=== PATIENT | female | born 1975 | race Caucasian/White ===

== ENCOUNTER → 2019-03-21 16:55 | Outpatient (CLI) | payer OTHER, SELFPAY ==
--- NOTE | ~2019-03-21 | MM_ITS ---
EXAMINATION: MM screening [facility] BI w parmjit HISTORY: Screening mammogram TECHNIQUE: Craniocaudal and mediolateral oblique 3-D tomosynthesis images were obtained and synthetic 2-D images were generated. CAD analysis was submitted and interpreted. COMPARISON: 01/18/2017 diagnostic left digital mammogram and limited left breast ultrasound 07/21/2016, 07/13/2015 bilateral digital screening mammogram examinations BREAST PARENCHYMAL COMPOSITION: FINDINGS: There is no evidence of suspicious mass, calcification, or architectural distortion to sugg est malignancy in either breast. There has been no suspicious interval change. IMPRESSION: 1. No mammographic evidence of malignancy. 2. Recommend routine screening mammography in one year. BI-RADS Category 1: Negative Reviewed, dictated and finalized at location A. BURNER
== END ==
PROVIDERS: Visit Provider Obstetrics & Gynecology
DX: Z12.31 Encounter for screening mammogram for malignant neoplasm of breast (principal)
CPT/HCPCS: 77063; 77067

== ENCOUNTER → 2020-08-14 13:32 | Outpatient (CLI) | payer OTHER, SELFPAY ==
--- NOTE | ~2020-08-14 | MM_ITS ---
EXAMINATION: MM screening [facility] BI w parmjit HISTORY: Screening mammogram TECHNIQUE: Craniocaudal and mediolateral oblique 3-D tomosynthesis images were obtained and synthetic 2-D images were generated. CAD analysis was submitted and interpreted. COMPARISON: 03/21/2019, 01/18/2017, 07/21/2016 BREAST PARENCHYMAL COMPOSITION: The breasts are heterogeneously dense, which may obscure small masses . FINDINGS: There is no evidence of suspicious mass, calcification, or architectural distortion to sugg est malignancy in either breast. There has been no suspicious interval change. IMPRESSION: 1. No mammographic evidence of malignancy. 2. Recommend routine screening mammography in one year. BI-RADS Category 1: Negative Reviewed, dictated and finalized at location A.
== END ==
PROVIDERS: PCP Family Medicine; Visit Provider Obstetrics & Gynecology
DX: Z12.31 Encounter for screening mammogram for malignant neoplasm of breast (principal)
CPT/HCPCS: 77063; 77067

== ENCOUNTER 2020-10-07 16:27 | Outpatient (CLI) | payer OTHER, SELFPAY ==
--- NOTE | ~2020-10-07 | MR_ITS ---
EXAMINATION: MR brain/brain stem wo/w con DATE: 10/07/2020 17:15 INDICATION: Unspecified convulsions. TECHNIQUE: Magnetic resonance imaging (MRI) of the brain and brainstem was performed without and with 13 mL MultiHance intravenous contrast. Sequences included sagittal and axial T1-weighted FSE, axial diffusion-weighted FS EPI, axial T2*-weighted GRE, axial T2-weighted FLAIR Propeller, axial T2-weight ed Propeller, coronal T2-weighted FLAIR, and coronal T1-weighted 3D FSPGR. Postcontrast axial and cor onal T1-weighted FSE was obtained. Apparent diffusion coefficient (ADC) maps were created. COMPARISON: None. FINDINGS: There are 3 small foci of increased T2-weighted signal intensity in the right frontal lobe deep white matter, which is normal for the patient's age. The hippocampi are normal and symmetric. Th ere is no intracranial hemorrhage, acute infarction, or abnormal intracranial mass lesion. The ventri cles are normal in size. The orbits are normal. There is mucosal thickening in left sphenoid sinus. T here is a trace left mastoid effusion. IMPRESSION: 1. Normal brain. Reviewed, dictated and finalized at location A. IMPRESSION: 1. Normal brain.
[2020-10-07 16:46] LABS: Estimated Glomerular Filt Rate 59
== END 2020-10-07 16:28 | disposition home or self-care (01) ==
PROVIDERS: PCP Family Medicine; Visit Provider Physician Assistant
DX: R56.9 Unspecified convulsions (principal)
CPT/HCPCS: 70553; A9577

== ENCOUNTER → 2021-10-22 11:09 | Outpatient (CLI) | payer OTHER, SELFPAY ==
--- NOTE | ~2021-10-22 | MM_ITS ---
EXAMINATION: MM screening gil BI w parmjit HISTORY: Screening mammogram TECHNIQUE: Craniocaudal and mediolateral oblique 3-D tomosynthesis images were obtained and synthetic 2-D images were generated. CAD analysis was submitted and interpreted. COMPARISON: 08/14/2020, 03/21/2019 bilateral screening mammogram examinations BREAST PARENCHYMAL COMPOSITION: The breasts are heterogeneously dense, which may obscure small masses . FINDINGS: There is no evidence of suspicious mass, calcification, or architectural distortion to sugg est malignancy in either breast. There has been no suspicious interval change. IMPRESSION: 1. No mammographic evidence of malignancy. 2. Recommend routine screening mammography in one year. BI-RADS Category 1: Negative Reviewed, dictated and finalized at location A.
== END ==
PROVIDERS: PCP Family Medicine; Visit Provider Obstetrics & Gynecology
DX: Z12.31 Encounter for screening mammogram for malignant neoplasm of breast (principal)
CPT/HCPCS: 77063; 77067

== ENCOUNTER 2021-11-17 07:48 | Outpatient (CLI) | payer OTHER, SELFPAY ==
--- NOTE | 2021-11-17 08:12 | ECHO_ITS ---
Patient Info Name: Pilar Cotto Age: 46 years : 1975 Gender: Female Ht: 61 in Wt: 135 lbs BSA: 1.64 m2 HR: 60 bpm Technical Quality: Good Exam Date: 11/17/2021 9:10 AM Exam Location: [facility] Pulmonary Patient Status: Outpatient Admit Date: 11/17/2021 Staff Ordering Physician: Marcelo Regan MD Pinion And Wheel Truer: Irving Lawrence RDCS, RT Attending Provider: Marcelo Regan MD Referring Physician: Shereen SIMMS; Exam Type: CA echo doppler color flow Study Info Indications R07.9 - Chest pain, unspecified Complete two-dimensional, color flow and Doppler transthoracic echocardiogram is performed. Summary 1. Complete two-dimensional, color flow and Doppler transthoracic echocardiogram is performed. 2. Left ventricular chamber dimension is normal. 3. Left ventricular systolic function is normal, estimated at 60-65%. 4. The left ventricular diastolic function is normal. 5. E/e' 5 is not elevated. 6. There is mild aortic valve sclerosis. 7. There is mild to moderate aortic valve regurgitation. 8. There is mild pulmonic regurgitation. Left Ventricle E/e' 5 is not elevated. Left ventricular chamber dimension is normal. Left ventricular systolic function is normal, estimated at 60-65%. The left ventricular diastolic function is normal. Right Ventricle Right ventricular systolic function is normal and with normal TAPSE 2.3 cm. Right ventricular chamber dimension is normal. Left Atria Left atrial chamber dimension is normal. Right Atria Right atrial chamber dimension is normal. Aortic Valve The aortic valve is trileaflet. There is mild aortic valve sclerosis. There is no aortic valve stenosis. There is mild to moderate aortic valve regurgitation. Pulmonic Valve There is mild pulmonic regurgitation. Mitral Valve There is no mitral valve stenosis. There is no mitral valve regurgitation. Tricuspid Valve There is no tricuspid valve regurgitation. Pericardium/Pleural There is no pericardial effusion. Inferior Vena Cava Normal inferior vena cava with >50% collapse upon inspiration consistent with normal right atrial pressure, 5 mmHg. Aorta The aortic root size at the sinus of Valsalva is normal. Left Ventricular Outflow Tract Name Value Normal LVOT 2D LVOT Diameter 1.9 cm LVOT Doppler LVOT Peak Gradient 3 mmHg LVOT Mean Gradient 2 mmHg LVOT VTI 18 cm LVOT VTI/AV VTI Ratio 1.0 LVOT Stroke Volume 51 ml Mitral Valve Name Value Normal MV Doppler MV Decel [place] 256 cm/s2 MV PHT 69 ms MV Area (PHT) 3.2 cm2 4.0-5.0 MV Diastolic Function
--- NOTE | 2021-11-17 08:12 | EST_ITS ---
Patient Info Name: Pilar Cotto Age: 46 years : 1975 Gender: Female Ht: 61 in Wt: 135 lbs BSA: 1.64 m2 BP: 124 / 79 mmHg Exam Date: 11/17/2021 9:14 AM Exam Location: [facility] Stress Patient Status: Outpatient Admit Date: 11/17/2021 Staff Ordering Physician: Marcelo Regan MD Attending Provider: Marcelo Regan MD Exercise Technologist: Irving Lawrence RDCS, RT Exercise Physician: Jaron Singh DO Exam Type: CA stress test treadmill Study Info A treadmill exercise stress test was performed. Summary 1. 1. Negative Russlel exercise stress test for ischemic ST changes by ECG criteria. 2. 2. Good functional capacity, achieving 11 METs of workload. 3. 3. Hypertensive response to exercise. 4. 4. Appropriate HR response to exercise. 5. 5. Appropriate HR recovery at 1 minute post exercise. 6. 6. No imaging with stress testing. 7. 7. Patient informed of the above results. Protocol: Russell Stress ECG Details Stage: REST Duration (min): 2 min : 27 sec Speed (mph): 0.0 Grade (%): 0 HR (bpm): 59 SBP (mmHg): 124 DBP (mmHg): 79 METS: --- Stage: REST Duration (min): 10 min : 1 sec Speed (mph): 0.0 Grade (%): 0 HR (bpm): 70 SBP (mmHg): 124 DBP (mmHg): 79 METS: --- Stage: STAGE 1 Duration (min): 1 min : 0 sec Speed (mph): 1.7 Grade (%): 10 HR (bpm): 80 SBP (mmHg): 124 DBP (mmHg): 79 METS: --- Stage: STAGE 1 Duration (min): 2 min : 0 sec Speed (mph): 1.7 Grade (%): 10 HR (bpm): 80 SBP (mmHg): 124 DBP (mmHg): 79 METS: --- Stage: STAGE 1 Duration (min): 3 min : 0 sec Speed (mph): 1.7 Grade (%): 10 HR (bpm): 82 SBP (mmHg): 142 DBP (mmHg): 77 METS: --- Stage: STAGE 2 Duration (min): 1 min : 0 sec Speed (mph): 2.5 Grade (%): 12 HR (bpm): 95 SBP (mmHg): 142 DBP (mmHg): 77 METS: --- Stage: STAGE 2 Duration (min): 2 min : 0 sec Speed (mph): 2.5 Grade (%): 12 HR (bpm): 99 SBP (mmHg): 164 DBP (mmHg): 77 METS: --- Stage: STAGE 2 Duration (min): 3 min : 0 sec Speed (mph): 2.5 Grade (%): 12 HR (bpm): 115 SBP (mmHg): 164 DBP (mmHg): 77 METS: --- Stage: STAGE 3 Duration (min): 1 min : 0 sec Speed (mph): 3.4 Grade (%): 14 HR (bpm): 127 SBP (mmHg): 164 DBP (mmHg): 77 METS: --- Stage: STAGE 3 Duration (min): 2 min : 0 sec Speed (mph): 3.4 Grade (%): 14 HR (bpm): --- SBP (mmHg): 164 DBP (mmHg): 77 METS: --- Stage: STAGE 3 Duration (min): 3 min : 0 sec Speed (mph): 3.4 Grade (%): 14 HR (bpm): 148 SBP (mmHg): 200 DBP (mmHg): 111 METS: --- Stage: STAGE 4 Duration (min): 0 min : 30 sec Speed (mph): 4.2 Grade (%): 16 HR (bpm): 160 SBP (mmHg): 211 DBP (mmHg): 107 METS: --- Stage: RECOVERY Duration (min): 0 mi
== END 2021-11-17 07:49 | disposition home or self-care (01) ==
LOC: ANHCARD 07:50
PROVIDERS: PCP Emergency Medicine; Visit Provider Emergency Medicine
DX: R55 Syncope and collapse (principal); I35.1 Nonrheumatic aortic (valve) insufficiency; I37.1 Nonrheumatic pulmonary valve insufficiency
CPT/HCPCS: 93017; 93306

== ENCOUNTER 2022-01-25 08:00 | Outpatient (NON) | payer OTHER, SELFPAY | END 2022-01-25 08:01 | disposition home or self-care (01) | LOC: ANHLAB 01-26 13:31 | PROVIDERS: PCP Emergency Medicine; Visit Provider Internal Medicine Gastroenterology | DX: Z12.11 Encounter for screening for malignant neoplasm of colon (principal) | CPT/HCPCS: 88305 ==

== ENCOUNTER 2022-01-25 11:00 | Day surgery (SDC) | payer OTHER, SELFPAY ==
[2022-01-18 13:30] VITALS: BMI 25.8
[2022-01-25 11:20] VITALS: BP 131/93; PULSE 79; RESP 16; TEMP 36.7; O2SAT 99
--- NOTE | 2022-01-25 11:34 | WPDANESEPPF ---
Anes - Initial Pre Proc Eval Procedure: Operation Date: 01/25/22 12:30 Proposed Procedures p Screening Colonoscopy - Daryl Funez MD Date/Time: 01/25/22 11:34 Surgeon: Daryl Funez MD Pre Op Diagnosis: Neoplasm Screening Patient Data Age: 46 Gender: F Height: 1.52 m Weight: 60 kg Allergies Allergy/AdvReac Type Severity Reaction Status Date / Time vortioxetine Allergy Vomiting Verified 01/25/22 11:30 [From Trintellix] Home Medications Medication Instructions Recorded Confirmed Type cholecalciferol (vitamin D3) 50 50 mcg PO DAILY 08/31/20 01/18/22 History mcg (2,000 unit) capsule norgestimate 0.18 mg/0.215 mg/0.25 1 tablet PO DAILY 12/29/20 01/18/22 History mg-ethinyl estradiol 25 mcg tablet sertraline 50 mg tablet See Rx Instructions .Route 01/11/21 01/18/22 Rx .COMPLEX #270 tabs omeprazole 40 mg capsule,delayed See Rx Instructions .Route 02/02/21 01/18/22 Rx release .COMPLEX #90 caps albuterol sulfate 90 mcg/actuation 90 mcg inhalation PRN 01/18/22 History aerosol inhaler Patient hx anesthesia problems: none Family hx anesthesia problems: none Results Review: All pre-operative results and documents have been reviewed as part of the pre-operative evaluation. [facility] Past Medical History Medical History (Updated 01/25/22 @ 11:34 by Claude Botello MD) Anxiety Surgical History Surgical History (Updated 01/25/22 @ 11:35 by Claude Botello MD) H/O laparoscopy Family History Family History Other Family history of cardiovascular disease Family history of malignant neoplasm Social History Social History Social History: Smoker Smoking packs per day: 1 Smoking cigarettes per day: 20.0 Years smoked: 7 Smoking pack-years: 7.00 Smoking status: Current every day smoker Tobacco type: cigarettes Second hand tobacco smoke exposure: Yes Smoking end date: 02/06/07 Alcohol intake: current Drinks per week: 2 Substance use: never Substance use type: does not use Lack of Transportation: No Lack of Food: Never True Current Housing: I Have Housing Concerned About Future Housing: No Difficulty Paying Gas/Electric Bills: No Difficulty Paying for Meds: No Currently Unemployed: No Education: Master's Degree or Higher Difficulty w/ Childcare or Family Care: No Living arrangements: alone Spiritual care concerns: No Anes - Eval Final PreProcedure Day of Procedure 01/25/22 11:34 Patient weight: normal Heart: regular rate and rhythm Lungs: clear to auscultation Airway: Mallampati scale class II Neurological: alert and oriented Last oral intake: >/= 8 hours ASA classification: II Emergent: no Anesthetic plan: proceed Anesthesia type and monitoring: general GIVS and standard monitoring Results Review: All pre-operative results and documents have been reviewed as part of the pre-operative evaluation. Informed Consent: The patient's anesthetic plan and its attendant risks and benefits were discussed with the patient/family/POA. Questions were solicited and answers provided to the satisfaction of the patient/family/POA.
[2022-01-25] MEDS: LACTATED RINGERS 1,000 ML 150 ML IV CONT (11:46)
--- NOTE | 2022-01-25 13:18 | PM.HPGS ---
History of Present Illness History of Present Illness Consent: Risks, benefits, and alternatives have been discussed and questions answered. Patient agrees to proceed with procedure. Chief complaint: Neoplasm Screening Narrative: Pilar Cotto is a 46 year old female Presents for colonoscopy. Patient desires neoplasia screening colonoscopy. Patient reports frequent compulsions. She has had several of these. Workup to date has been negative. She reports occasionally having a convulsion in the middle of the night when she feels the urge to have a bowel movement. She has gone to the bathroom and had a significant compulsion. She reports her bowel habits are normal. She has no pain or bleeding. Her mother has irritable bowel syndrome. There is no family history of colon polyps nor cancer. Patient presents today for neoplasia screening colonoscopy. Never having had one previously Review of Systems Review of Systems: review of systems noncontributory. [facility] Past Medical History Medical History (Updated 01/25/22 @ 13:21 by Daryl Funez MD) Anxiety Surgical History Surgical History (Updated 01/25/22 @ 11:35 by Claude Botello MD) H/O laparoscopy Family History Family History Other Family history of cardiovascular disease Family history of malignant neoplasm Social History Social History Social History: Smoker Smoking packs per day: 1 Smoking cigarettes per day: 20.0 Years smoked: 7 Smoking pack-years: 7.00 Smoking status: Current every day smoker Tobacco type: cigarettes Second hand tobacco smoke exposure: Yes Smoking end date: 02/06/07 Alcohol intake: current Drinks per week: 2 Substance use: never Substance use type: does not use Lack of Transportation: No Lack of Food: Never True Current Housing: I Have Housing Concerned About Future Housing: No Difficulty Paying Gas/Electric Bills: No Difficulty Paying for Meds: No Currently Unemployed: No Education: Master's Degree or Higher Difficulty w/ Childcare or Family Care: No Living arrangements: alone Spiritual care concerns: No Meds Home Medications and Allergies Home Medications Medication Instructions Recorded Confirmed Type cholecalciferol (vitamin D3) 50 50 mcg PO DAILY 08/31/20 01/25/22 History mcg (2,000 unit) capsule norgestimate 0.18 mg/0.215 mg/0.25 1 tablet PO DAILY 12/29/20 01/25/22 History mg-ethinyl estradiol 25 mcg tablet sertraline 50 mg tablet See Rx Instructions .Route 01/11/21 01/25/22 Rx .COMPLEX #270 tabs omeprazole 40 mg capsule,delayed See Rx Instructions .Route 02/02/21 01/25/22 Rx release .COMPLEX #90 caps albuterol sulfate 90 mcg/actuation 90 mcg inhalation PRN 01/18/22 01/25/22 History aerosol inhaler Allergies Allergy/AdvReac Type Severity Reaction Status Date / Time vortioxetine Allergy Vomiting Verified 01/25/22 11:30 [From TrinteElixent] Vital Signs Vital Signs - 24 hr 01/25/22 11:20 Temperature 98.1 F Pulse Rate 79 Respiratory Rate 16 Blood Pressure 131/93 H Pulse Oximetry 99 Oxygen Delivery Room Air Exam Narrative: Physical exam reveals patient be alert. Vital signs stable. HEENT exam is unremarkable. Patient is anicteric. Lungs are clear to auscultation and percussion. Heart is without murmur or extra sounds. Abdomen bowel sounds are present soft nontender with no organomegaly. Digital external rectal exam is normal. Assessment and Plan Assessment and plan (1) Encounter for screening colonoscopy: Code(s): Z12.11 - Encounter for screening for malignant neoplasm of colon Status: Acute Assessment and Plan: Patient presents today for neoplasia screening colonoscopy. Appears to be at average risk for colon polyps. Further recommendations may be given today.
[2022-01-25 13:43] VITALS: BP 104/75; PULSE 76; RESP 16; O2SAT 99
[2022-01-25 13:57] VITALS: BP 108/80; PULSE 70; RESP 16; O2SAT 100
--- NOTE | 2022-01-25 13:58 | SUR.PHASEII ---
PT AWAKE AND ALERT. DENIES PAIN. DRINKING WATER, TALKATIVE WITH FAMILY.
--- NOTE | 2022-01-25 14:03 | WPDANESPN ---
Anes - Prog Note Post-Op Date/Time: 01/25/22 14:03 Cardiovascular status: normal Respiratory status: normal Airway patency: baseline Mental status: baseline Post-Op hydration status: normal Vital Signs: Last Vital Signs Temp 36.7 C 01/25/22 11:20 Pulse 70 01/25/22 13:57 Resp 16 01/25/22 13:57 BP 108/80 01/25/22 13:57 Pulse Ox 100 01/25/22 13:57 O2 Del Method Room Air 01/25/22 13:57 Pain Score (VAS): 0/10 I/O: Intake & Output 01/24/22 01/25/22 01/25/22 23:59 07:59 15:59 Intake Total 500 Balance 500 Patient Feedback: Patient satisfied with anesthetic care.
[2022-01-25 14:05] VITALS: BP 119/89; PULSE 66; RESP 16
== END 2022-01-25 14:17 | disposition home or self-care (01) ==
PROVIDERS: PCP Emergency Medicine; Visit Provider Internal Medicine Gastroenterology
PROC: 0DJD8ZZ Inspection of Lower Intestinal Tract, Via Natural or Artificial Opening Endoscopic (ICD-10-PCS; CPT 45378; principal; 2022-01-25 12:30)
DX: Z12.11 Encounter for screening for malignant neoplasm of colon (principal)
CPT/HCPCS: 45385; 45380

== ENCOUNTER 2022-06-07 12:50 | Outpatient (CLI) | payer OTHER, SELFPAY | END 2022-06-07 12:51 | disposition home or self-care (01) | LOC: ANHAUDIO 12:50 | PROVIDERS: PCP Emergency Medicine; Visit Provider Otolaryngology | DX: H90.42 Sensorineural hearing loss, unilateral, left ear, with unrestricted hearing on the contralateral side (principal); H90.71 Mixed conductive and sensorineural hearing loss, unilateral, right ear, with unrestricted hearing on the contralateral side | CPT/HCPCS: 92557; 92567 ==

== ENCOUNTER → 2022-09-20 14:58 | Outpatient (CLI) | payer OTHER, SELFPAY ==
--- NOTE | ~2022-09-20 | US_ITS ---
EXAMINATION: US transvaginal DATE: 09/20/2022 15:37 INDICATION: Ovarian cyst. TECHNIQUE: Multiple transvaginal sonographic images of the pelvis were obtained. COMPARISON: Ultrasound pelvis 08/29/2016, CT abdomen and pelvis 08/28/2016 FINDINGS: The uterus measures 7.3 x 4.2 x 5.2 cm. There is no free fluid in the pelvis. The endometrial complex measures 6 mm in thickness. There are 3.2 cm and 2.3 cm intramural fibroids. The right ovary measure s 2.3 x 1.2 x 1.6 cm. There is a 3.6 x 1.9 x 2.2 cm cystic mass with eccentric low level echoes in le ft adnexa. IMPRESSION: 1. 3.6 cm cystic mass with eccentric low level echoes in the left adnexa. This finding is suspicious for a hemorrhagic cyst or peritoneal inclusion cyst. Correlate with surgical history. Consider ultras ound in 6-12 weeks. 2. Uterine fibroids. Reviewed, dictated and finalized at location A. IMPRESSION: 1. 3.6 cm cystic mass with eccentric low level echoes in the left adnexa. This finding is suspicious for a hemorrhagic cyst or peritoneal inclusion cyst. Maribell elate with surgical history. Consider ultrasound in 6-12 weeks. 2. Uterine fibroids.
== END ==
PROVIDERS: PCP Emergency Medicine; Referring Provider Obstetrics & Gynecology; Visit Provider Obstetrics & Gynecology Gynecology
DX: N83.209 Unspecified ovarian cyst, unspecified side (principal); N94.5 Secondary dysmenorrhea; D25.9 Leiomyoma of uterus, unspecified
CPT/HCPCS: 76830

== ENCOUNTER → 2023-01-11 15:58 | Outpatient (CLI) | payer OTHER, SELFPAY ==
--- NOTE | ~2023-01-11 | US_ITS ---
Pelvic ultrasound. Clinical History: Ovarian cyst COMPARISON: 09/20/2022 Technique: Realtime transabdominal and transvaginal scanning of the pelvis was performed. Color flow Doppler and Doppler spectral analysis were performed. Findings: The uterus is anteverted. The endometrial stripe has a thickness of 4 mm. Probable right-s ided fibroid measures 1.3 cm in diameter. Additional probable ill-defined intramural fibroid measures 2.9 cm in diameter. Smaller intramural fibroid near the fundus measures 1.1 cm in diameter.. The right ovary measures 2.0 x 1.8 x 2.5 cm. No significant right ovarian or adnexal mass is seen. The left ovary measures 3.8 x 2.0 x 2.3 cm. Probable complex left ovarian cyst is similar to prior ex am. There is no evidence of free fluid in the cul de sac. Impression: Probable complex left ovarian cyst, similar to prior exam. Small uterine fibroids, as above. Reviewed, dictated and finalized at location . [employer] Impression: Probable complex left ovarian cyst, similar to prior exam. Small uterine fibroids, as above.
== END ==
PROVIDERS: PCP Obstetrics & Gynecology; Visit Provider Obstetrics & Gynecology Gynecology
DX: N94.5 Secondary dysmenorrhea (principal); D25.9 Leiomyoma of uterus, unspecified; N83.202 Unspecified ovarian cyst, left side
CPT/HCPCS: 76830

== ENCOUNTER 2023-08-18 10:41 | Outpatient (CLI) | payer OTHER, SELFPAY ==
[2023-08-21 15:09] LABS: H pylori Ag Stool RESULT: Not Detected
[2023-08-21 17:28] LABS: Immunoglobulin A 115 mg/dL (47-310); TTG IGA AB <1.0 U/mL
[2023-08-25 19:34] LABS: Pancreatic Elastase, Stool >500 mcg/g
[2023-08-25 20:54] LABS: Calprotectin, Stool 16 mcg/g
== END 2023-08-18 10:42 | disposition home or self-care (01) ==
LOC: ANHLAB 10:42
PROVIDERS: PCP Emergency Medicine; Visit Provider Nurse Practitioner
DX: R09.89 Other specified symptoms and signs involving the circulatory and respiratory systems (principal); R10.9 Unspecified abdominal pain; R55 Syncope and collapse
CPT/HCPCS: 36415; 82653; 82784; 83993; 86364; 87045; 87177; 87209; 87269; 87338; 87427; 87449

== ENCOUNTER 2023-08-29 07:42 | Outpatient (CLI) | payer OTHER, SELFPAY ==
--- NOTE | ~2023-08-29 | CT_ITS ---
EXAMINATION: CTA abdomen pelvis DATE: 08/29/2023 08:35 INDICATION: Abdominal bruit and palpable abdominal aorta TECHNIQUE: Computed tomographic angiography (CTA) of the abdomen and pelvis was performed with 100 mL Omnipaque-350 intravenous contrast. Additional 3D reconstructions utilizing rotating maximum intensi ty projection (MIP) were performed. Automated exposure control and iterative reconstruction technique were employed. The dose-length product was 265.35 mGy-cm. COMPARISON: CT dated 08/28/2016 FINDINGS: Lung bases are clear. Heart size is normal. No pericardial or pleural effusion. Liver, gallbladder, p ancreas, spleen, bilateral adrenal glands and kidneys are normal. Abdominal aorta is normal in calibe r with no dissection or evident atherosclerotic plaque. There appears to be mild, <50% stenosis at th e origin of the celiac axis with mild poststenotic dilation which appears to result from extrinsic co mpression from the more cephalad blayne of the diaphragm. The remaining arteries arising off the aorta appear normal with no evident plaque or stenosis. Bowels including appendix are normal. Bladder, ante verted uterus and adnexa are unremarkable. Trace amount of likely physiologic free fluid in the pelvi s. No free intraperineal gas. No pathologically enlarged abdominal or pelvic lymphadenopathy. Partial ly lumbarized S1 segment. Mild thoracic and lumbar spondylosis and severe facet osteoarthritis on the left at L5-S1. IMPRESSION: 1. Normal caliber abdominal aorta with no evident atherosclerotic plaque or dissection. Reviewed, dictated and finalized at location A. IMPRESSION: 1. Normal caliber abdominal aorta with no evident atherosclerotic plaque or dis section.
== END 2023-08-29 07:43 | disposition home or self-care (01) ==
PROVIDERS: PCP Emergency Medicine; Visit Provider Nurse Practitioner
DX: R10.9 Unspecified abdominal pain (principal); R09.89 Other specified symptoms and signs involving the circulatory and respiratory systems; R55 Syncope and collapse
CPT/HCPCS: 74174; Q9967

== ENCOUNTER 2023-10-10 01:06 | Day surgery (SDC) | payer OTHER, SELFPAY ==
[2023-09-20 11:57] VITALS: BMI 25.0
[2023-10-10 11:20] VITALS: BP 116/83; PULSE 64; RESP 19; TEMP 36.5; O2SAT 100
[2023-10-10] MEDS: LACTATED RINGERS 1,000 ML 150 ML IV CONT (11:33)
--- NOTE | 2023-10-10 11:39 | SUR.PREOP ---
Patient last menstrual cycle in September of 2022. Patient unable to provide urine sample. Per jonathan Gould to proceed with no test.
--- NOTE | 2023-10-10 11:41 | WPDANESEPPF ---
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, Abd.Pain, Patient Data Age: 48 Gender: F Height: 1.52 m Weight: 57.4 kg Last Vital Signs Temp 97.7 F 10/10/23 11:20 Pulse 64 10/10/23 11:20 Resp 19 10/10/23 11:20 BP 116/83 10/10/23 11:20 Pulse Ox 100 10/10/23 11:20 O2 Del Method Room Air 10/10/23 11:20 Allergies Allergy/AdvReac Type Severity Reaction Status Date / Time vortioxetine Allergy Vomiting Verified 08/17/23 14:13 [From Trintellix] Home Medications Medication Instructions Recorded Confirmed Type cholecalciferol (vitamin D3) 50 50 mcg PO DAILY 08/31/20 10/10/23 History mcg (2,000 unit) capsule albuterol sulfate 90 mcg/actuation 90 mcg inhalation PRN 01/18/22 10/10/23 History aerosol inhaler methylphenidate HCl 10 mg 10 mg PO QAM #30 tabs 06/23/23 10/10/23 Rx tablet,extended release sertraline 100 mg tablet 200 mg PO DAILY #60 tabs 10/02/23 10/10/23 Rx Patient hx anesthesia problems: none Family hx anesthesia problems: none Results Review: All pre-operative results and documents have been reviewed as part of the pre-operative evaluation. [facility] Past Medical History Medical History Anxiety Surgical History Surgical History H/O laparoscopy Family History Family History Other Family history of cardiovascular disease Family history of malignant neoplasm Social History Social History Social History: Caffeine-daily Smoking packs per day: 0.25 Smoking cigarettes per day: 5.0 Years smoked: 7 Smoking pack-years: 1.75 Smoking status: Current every day smoker Tobacco type: cigarettes Second hand tobacco smoke exposure: Yes Smoking end date: 02/06/07 Alcohol intake: current Drinks per week: 3 Alcohol use details: socially Substance use: never Substance use type: marijuana Other substance usage details: edibles Last use: last weekend Do You Feel Safe in your Home?: Yes Lack of Transportation: No Lack of Food: Never True Current Housing: I Have Housing Concerned About Future Housing: No Difficulty Paying Gas/Electric Bills: No Difficulty Paying for Meds: No Currently Unemployed: No Education: Master's Degree or Higher Difficulty w/ Childcare or Family Care: No Living arrangements: alone Spiritual care concerns: No Anes - Eval Final PreProcedure Day of Procedure 10/10/23 11:41 Patient weight: normal Heart: regular rate and rhythm Lungs: clear to auscultation Airway: Mallampati scale class II Neurological: alert and oriented Last oral intake: >/= 8 hours ASA classification: III Emergent: no Anesthetic plan: proceed Anesthesia type and monitoring: general GIVS and standard monitoring Results Review: All pre-operative results and documents have been reviewed as part of the pre-operative evaluation. Informed Consent: The patient's anesthetic plan and its attendant risks and benefits were discussed with the patient/family/POA. Questions were solicited and answers provided to the satisfaction of the patient/family/POA.
[2023-10-10 12:54] VITALS: BP 104/66; PULSE 62; RESP 19; O2SAT 98
[2023-10-10 13:04] VITALS: BP 103/63; PULSE 60; RESP 19; O2SAT 100
[2023-10-10 13:14] VITALS: BP 105/85; PULSE 60; RESP 19; O2SAT 100
--- NOTE | 2023-10-11 12:12 | PM.HPGS ---
History of Present Illness History of Present Illness Consent: Risks, benefits, and alternatives have been discussed and questions answered. Patient agrees to proceed with procedure. Chief complaint: Celiac artery compression syndrome, Abd.Pain, Narrative: Pilra Cotto is a 48 year old female with intermittent epigastric pain here for EGD (H&P for 10/10/23) Review of Systems Review of Systems: All systems reviewed & are unremarkable except as noted in HPI and below PMFSH Past Medical History Medical History (Updated 10/11/23 @ 12:23 by Paul Staton MD) Anxiety Epigastric pain Surgical History Surgical History H/O laparoscopy Family History Family History Other Family history of cardiovascular disease Family history of malignant neoplasm Social History Social History Social History: Caffeine-daily Smoking packs per day: 0.25 Smoking cigarettes per day: 5.0 Years smoked: 7 Smoking pack-years: 1.75 Smoking status: Current every day smoker Tobacco type: cigarettes Second hand tobacco smoke exposure: Yes Smoking end date: 02/06/07 Alcohol intake: current Drinks per week: 3 Alcohol use details: socially Substance use: never Substance use type: marijuana Other substance usage details: edibles Last use: last Do You Feel Safe in your Home?: Yes Lack of Transportation: No Lack of Food: Never True Current Housing: I Have Housing Concerned About Future Housing: No Difficulty Paying Gas/Electric Bills: No Difficulty Paying for Meds: No Currently Unemployed: No Education: Master's Degree or Higher Difficulty w/ Childcare or Family Care: No Living arrangements: alone Spiritual care concerns: No Meds Home Medications and Allergies Home Medications Medication Instructions Recorded Confirmed Type cholecalciferol (vitamin D3) 50 50 mcg PO DAILY 08/31/20 10/10/23 History mcg (2,000 unit) capsule albuterol sulfate 90 mcg/actuation 90 mcg inhalation PRN 01/18/22 10/10/23 History aerosol inhaler methylphenidate HCl 10 mg 10 mg PO QAM #30 tabs 06/23/23 10/10/23 Rx tablet,extended release sertraline 100 mg tablet 200 mg PO DAILY #60 tabs 10/02/23 10/10/23 Rx Allergies Allergy/AdvReac Type Severity Reaction Status Date / Time vortioxetine Allergy Vomiting Verified 08/17/23 14:13 [From [employer]] Vital Signs Vital Signs - 24 hr 10/10/23 12:54 10/10/23 13:04 10/10/23 13:14 Pulse Rate 62 60 60 Respiratory Rate 19 19 19 Blood Pressure 104/66 103/63 105/85 Pulse Oximetry 98 100 100 Oxygen Delivery Room Air Room Air Room Air Exam Const: General: comfortable and no acute distress HENMT: Face/Nose/Sinus: Normal nares present Eyes: General: appearance normal, both eyes and all related structures Neck: Neck: no JVD Resp: Auscultation: clear to auscultation bilaterally Cardio: Rate: regular rate Rhythm: regular rhythm GI: Inspection: non-distended GI Palp: Yes Soft to palpation Skin: General skin exam: normal color Neuro: General: gait normal Speech: normal speech Extrem: General: normal to inspection Psych: Mental Status: mental status grossly normal Assessment and Plan Assessment and plan (1) Epigastric pain: Code(s): R10.13 - Epigastric pain Status: Acute Assessment and Plan: egd
== END 2023-10-10 13:24 | disposition home or self-care (01) ==
PROVIDERS: PCP Emergency Medicine; Referring Provider Nurse Practitioner; Visit Provider Internal Medicine Gastroenterology
PROC: 0DJ08ZZ Inspection of Upper Intestinal Tract, Via Natural or Artificial Opening Endoscopic (ICD-10-PCS; CPT 43235; principal; 2023-10-10 12:30)
DX: K29.70 Gastritis, unspecified, without bleeding (principal); I77.4 Celiac artery compression syndrome; F17.210 Nicotine dependence, cigarettes, uncomplicated; F12.90 Cannabis use, unspecified, uncomplicated; Z79.51 Long term (current) use of inhaled steroids; F41.9 Anxiety disorder, unspecified
CPT/HCPCS: 43239; 88305; J2704; J7120

== ENCOUNTER 2024-02-29 15:48 | Outpatient (CLI) | payer OTHER, SELFPAY ==
--- NOTE | ~2024-02-29 | MM_ITS ---
EXAMINATION: MM screening gil BI w parmjit HISTORY: Screening TECHNIQUE: Craniocaudal and mediolateral oblique 3-D tomosynthesis images were obtained and synthetic 2-D images were generated. CAD analysis was submitted and interpreted. COMPARISON: Comparison to multiple prior studies sequentially, with oldest reviewed study dated 07/21. BREAST PARENCHYMAL COMPOSITION: Dense: The breasts are heterogeneously dense, which may obscure small masses FINDINGS: Breast asymmetries are not significantly changed from prior studies. There is no evidence o f suspicious mass, calcification, or architectural distortion to suggest malignancy in either breast. There has been no suspicious interval change. IMPRESSION: 1. No mammographic evidence of malignancy. 2. Recommend routine screening mammography in one year. BI-RADS Category 1: Negative Reviewed, dictated and finalized at location A. [employer]
== END 2024-02-29 15:49 | disposition home or self-care (01) ==
PROVIDERS: PCP Obstetrics & Gynecology; Visit Provider Obstetrics & Gynecology
DX: Z12.31 Encounter for screening mammogram for malignant neoplasm of breast (principal)
CPT/HCPCS: 77063; 77067

== ENCOUNTER 2024-12-04 11:23 | Outpatient (CLI) | payer OTHER, SELFPAY ==
--- NOTE | ~2024-12-04 | US_ITS ---
EXAMINATION: US pelvic complete w TV, 12/04/2024 11:27 CDT HISTORY: Ovarian cyst Comparison: None Technique: Chambers-scale and color Doppler images were obtained. Findings: Uterus: Uterus anteverted 6.7 x 3.2 x 4.3 cm. Probable posterior uterine body fibroid measures 2.1 x 1.7 cm, this appears partially submucosal. . Endometrium 4 mm. Right Ovary:Right ovary 1.9 x 1.5 x 1.8 cm, no adnexal mass, normal flow. Left Ovary: Left ovary surgically absent. Free Fluid: None Impression: There is no cystic ovarian lesion identified. Probable submucosal fibroid. If there is abnormal bleeding contrast-enhanced MRI is suggested Reviewed, dictated and finalized at location P. Impression: There is no cystic ovarian lesion identified. Probable submucosal fibroid. If t here is abnormal bleeding contrast-enhanced MRI is suggested
== END 2024-12-04 11:24 | disposition home or self-care (01) ==
LOC: MICIMG 11:24
PROVIDERS: PCP Nurse Practitioner Family; Visit Provider Obstetrics & Gynecology Gynecology
DX: N83.209 Unspecified ovarian cyst, unspecified side (principal); N94.5 Secondary dysmenorrhea
CPT/HCPCS: 76830; 76856